=== PATIENT | male | born 1955 | race Caucasian/White ===

== ENCOUNTER → 2020-04-13 09:00 | Outpatient (BNVA) | payer OTHER, SELFPAY | PROVIDERS: Visit Provider Family Medicine | DX: C61 Malignant neoplasm of prostate (principal); E78.2 Mixed hyperlipidemia; I10 Essential (primary) hypertension; M77.9 Enthesopathy, unspecified | CPT/HCPCS: 84153 ==

== ENCOUNTER → 2020-05-19 10:47 | Outpatient (BNVA) | payer OTHER, SELFPAY | PROVIDERS: PCP Family Medicine; Visit Provider Urology | DX: C61 Malignant neoplasm of prostate (principal); N99.112 Postprocedural membranous urethral stricture, male | CPT/HCPCS: 81001 ==

== ENCOUNTER → 2020-06-09 12:10 | Outpatient (BNVA) | payer OTHER, SELFPAY | PROVIDERS: PCP Family Medicine; Visit Provider Urology | DX: N99.112 Postprocedural membranous urethral stricture, male (principal) | CPT/HCPCS: 81003; 87635 ==

== ENCOUNTER 2020-06-12 12:54 | Day surgery (SDC) | payer OTHER, SELFPAY ==
[2020-06-09 16:32] VITALS: BMI 26.4
[2020-06-12] VITALS (7 sets, daily range): BP systolic 112–151; BP diastolic 68–93; PULSE 51–66; RESP 15–23; TEMP 36.1–36.6; O2SAT 96–100
--- NOTE | 2020-06-12 13:21 | ANES.PREANE2 ---
Pre-Anesthetic Assessment Pre-Anesthetic Assessment: Height/Weight: Height 1.83 m Weight 88.451 kg Temp Pulse Resp BP Pulse Ox 97.1 F L 51 L 16 138/85 100 06/12/20 13:19 06/12/20 13:19 06/12/20 13:19 06/12/20 13:19 06/12/20 13:19 Preop Diagnosis: Urethrovesical anastomotic stricture Proposed Procedure: Operation Date: 06/12/20 14:35 Proposed Procedures p Cystoscopy 56155 N35.919(Not Applicable) - Robbin Nolasco MD s Urethral Dilation(Not Applicable) - Robbin Nolasco MD Was Beta Alyssa taken within 24 hours: Yes Last intake: Intake Last Liquid Date 06/12/20 Last Liquid Time 09:00 Last Solid Date 06/11/20 Last Solid Time 22:30 Social: Social History: No alcohol and No tobacco Packs per day: Quit smoking in 2002 Exam: Pre-Anes Outpt Exam: alert, oriented x 3, clear to auscultation bilaterally and regular rate & rhythm Airway: Submandibular: WNL Cervical ROM: WNL MP: 2 Pulmonary: Pulmonary: None reported CV/HEM: CV/HEM: HTN : Comments: Post Prostatectomy Urethral Stricture Hepatic: Hepatic: None reported GI: GI: None reported Metabolic: Metabolic: Hyperlipidemia Musc/skel: Musc/skel: None reported Neuropsych: Neuropsych: None reported Anesthetic Plan: ASA status: 2 Anesthesia: General PFSH Anesthesia PFSH: Medical History History of external beam radiation therapy 2018 for residual prostate cancer following radical prostatectomy in 2016 did well Hyperlipidemia Hypertension Prostate cancer Surgical History Hx of left inguinal hernia repair Hx of prostatectomy Family History Mother CAD (coronary artery disease) Social History Smoking and tobacco status: former smoker Quit status (tobacco): has quit using tobacco Year quit tobacco: 2002 Alcohol intake: current Alcohol intake frequency: holidays/special occasions only Adopted: No Caregiver/support person: No Lives independently: No Household members: spouse Marital status: Current occupational status: retired Data Anesthesia Cardiac Studies: No Data to Display
[2020-06-12] MEDS: sodium chloride 0.9% 1,000 ML 30 ML IV (13:24)
--- NOTE | 2020-06-12 14:23 | P.HPUD_ITS ---
Surgery/Procedure H&P Update DATE OF PROCEDURE: June 12, 2020 DATE H&P PERFORMED: 06/09/20 H&P UPDATE INFORMATION: I have reviewed H&P completed within last 30 days, I have examined patient prior to procedure, No changes to prior documentation and H&P is in [facility] EMR on date indicated PREOP DIAGNOSIS: Urethrovesical anastomotic stricture PLANNED PROCEDURE: Operation Date: 06/12/20 14:35 Proposed Procedures p Cystoscopy 92416 N35.919(Not Applicable) - Robbin Nolasco MD s Urethral Dilation(Not Applicable) - Robbin Nolasco MD
[2020-06-12] MEDS: levofloxacin-dextrose 5 % 500 MG/100 ML PREMIX 100 MG IV (14:33)
[2020-06-12] MEDS: lidocaine 2% Urojet 20 mL TOPICAL (14:52)
[2020-06-12] MEDS: iohexol 300 mg/mL 50 mL Btl (OR ONLY) XX (14:53)
--- NOTE | 2020-06-12 15:10 | SUR.PHASEI ---
1502 PATIENT TO PACU FROM OR. ORAL AIRWAY IN PLACE. SPO2 98% ON SIMPLE MASK AT 8L. PEREZ CATH IN PLACE, SECURED TO LEFT LEG.
--- NOTE | 2020-06-12 15:15 | SUR.PHASEI ---
1515 ORAL AIRWAY REMOVED AT THIS TIME. SPO2 99% ON SIMPLE MASK.
--- NOTE | 2020-06-12 15:18 | P.OP_ITS ---
Operative Report Date of procedure: June 12, 2020 Pre-op Diagnosis: Urethrovesical anastomotic stricture Post-op diagnosis: same Procedure Done: Cystoscopy, dilation of bladder neck Pathology: none sent Surgeon: Gaurav Anesthesia: General Estimated blood loss: Minimal Complications: None Findings: Narrow bladder neck requiring guidewire passage and dilation over the guidewire. Condition: stable Disposition: PACU Brief History: Mr. Nino is a delightful 65-year-old white male status post radical prostatectomy with bladder neck contracture. He is undergone visual internal ureterotomy and dilation in the past. Was discovered to have a recurrent symptomatic anastomotic stricture and is admitted for dilation with planned further passive dilation with indwelling Singh catheter followed by SCIC initiation for stricture patency maintenance. Procedure: After routine preoperative evaluation examination and obtaining of informed consent he was taken to the operating suite on 06/12/2020 where general anesthesia was administered without difficulty after appropriate timeout was performed, SCDs confirmed to be functioning, preoperative antibiotics administered, beta-arvind protocol confirmed. Prepped and draped in the usual sterile fashion in dorsal lithotomy position paying careful attention to avoiding pressure points. 21 Liberian cystoscope with 30 degree lens was introduced into the urethral meatus and advanced to the bladder neck under videoscopy. The pinpoint opening was identified at the 6 o'clock position as identified previously in clinic. A flexible tip guidewire was then passed through the opening into the bladder as confirmed via fluoroscopy. An open-ended catheter was then passed over the guidewire and the guidewire removed and contrast was injected into the bladder to confirm positioning and to facilitate passage of dilators. The wire was then replaced back through the open-ended catheter and the catheter was removed. Dilation of anastomotic stricture was then conducted with Amplatz renal dilators beginning at 8 Liberian and extending up to 18 Liberian with the final 14, 16 and 18 Liberian dilators over a snake. Each passage was observed under fluoroscopic real-time imaging. The cystoscope was then passed back into the urethra and into the bladder through the dilated area. No gross pathology was identified in the bladder. The cystoscope was then removed and a 16 Liberian teller tip catheter was advanced over the guidewire into the bladder. The balloon was inflated and confirmed to be functioning prior to removal of the wire. The bladder was drained and the procedure completed. He tolerated the procedure well without complications and was awakened in the operating room and returned to the care of room in stable condition. PLANS: 1. Discharge from outpatient surgery today with follow-up in my office early next week with voiding trial and SCIC instruction.
--- NOTE | 2020-06-12 15:25 | SUR.PHASEI ---
1522 PATIENT TO OPS. DENIES PAIN. PEREZ CATH IN PLACE. TOLERATING ICE CHIPS.
--- NOTE | 2020-06-12 16:16 | ANE.PACU2 ---
Inpatient post-anesthesia follow up: Airway intact: Yes Vital signs: Temperature 97.8 F Pulse Rate 54 Respiratory Rate 18 Blood Pressure 151/88 Pulse Oximetry 99 Oxygen Delivery Me thod Room Air Oxygen Flow Rate 8 Fraction of Inspir ed Oxygen Hydration adequate: Yes Nausea and vomiting: No Pain level: 3 Mental status: Baseline
== END 2020-06-12 16:00 | disposition home or self-care (01) ==
PROVIDERS: PCP Family Medicine; Visit Provider Urology
PROC: 0TJB8ZZ Inspection of Bladder, Via Natural or Artificial Opening Endoscopic (ICD-10-PCS; CPT 52000; principal; 2020-06-12 14:15)
PROC: (CPT 52281; 2020-06-12 14:15)
DX: N35.919 Unspecified urethral stricture, male, unspecified site (principal); Z87.891 Personal history of nicotine dependence; I10 Essential (primary) hypertension; E78.5 Hyperlipidemia, unspecified; Z85.46 Personal history of malignant neoplasm of prostate
CPT/HCPCS: 52281; 12345; J1100; J1956; J2405; J2704; J2710; J3010; J3490; J7030

== ENCOUNTER 2020-06-20 10:28 | Outpatient (CLI) | payer OTHER, SELFPAY ==
--- NOTE | 2020-06-22 15:35 | ONC CON_ITS ---
Dr. Reed New Patient Note Patient: Josse Nino Unit #: [id number]: 1955 Dicatated By: Jose Reed M.D.Date of Visit: Jun 20, 2020 Onc MED New Patient/Consult Referring Physician: Dr. Robbin Nolasco M.D. History of Present Illness: Mr. Garcia Nino, is a 65-year-old gentleman with history of prostate cancer, diagnosed in September 2015, in October 2015, he underwent retropubic prostatectomy in [place] and final pathology report showed perineural invasion, focal extracapsular extension but no evidence of seminal vesicle invasion and with clear margin. [place] score 3+7 with 40% involvement, at that time no further treatment was offered and patient was observed and during follow-up his PSA slowly but gradually start increasing and reached to peak at 0.3 in 2017 at that time patient was treated with adjuvant radiation therapy subsequently during follow-up his PSA decreased to 0.03 but during follow-up in May 2020 his PSA started going up to 0.087 and there was no palpable disease on LV as per urology note. Patient said he had discussion with Dr. Nolasco regarding treatment options due to very slow progression of PSA treatment options were discussed including observation and or systemic therapy given patient had a fairly definite therapy and salvage radiation therapy, patient is here to discuss role of systemic therapy. Patient denies any hematuria, denies any pelvic pain, denies any lower back pain, denies any bony pains, denies any fever chills nausea or vomiting denies any hemoptysis or hematemesis denies any melena or hematochezia, denies any weight loss, appetite is good and maintaining good quality of life. postop period Complicated with recurrent urethral stricture requiring frequent dilation. And intermittent catheterization Past Medical History: Mr. Nino's medical history consists of hyperlipidemia and hypertension. Past Surgical History: Mr. Nino's surgical/procedural history consists of hernia repair and prostatectomy. Medications: Aspirin 1 Tablet (of 81 mg) Tablet, enteric coated Oral daily, Atenolol 1 Tablet (of 100 mg) Oral daily, Atorvastatin Calcium 1 Tablet (of 40 mg) Oral daily, Lisinopril-hydroCHLOROthiazide 0.5 Tablet (of 20-25 mg) Oral daily Allergies: No Known Allergies. Social History: Mr. Nino is . Mr. Nino no longer smokes. He drinks occasionally. Family History: Mr. Nino's mother at age 88: coronary artery disease. Mr. Nino's father at age 48: war. Mr. Nino has 1 brother who is alive. Review Of Symptoms: Constitutional - Appetite is good and weight is stable. No fever, night sweats, or hot flashes. Energy level is good, ENMT - No sinus congestion/drainage. No mouth sores. No sore throat or difficulty swallowing, Hematologic/Lymphatic - No abnormal bruising or bleeding, Respiratory - No shortness of breath. No cough. No pleuritic pain or hemoptysis, Cardiovascular - No angina pain. No palpitations, Gastrointestinal - No nausea or vomiting. No heartburn or acid reflux. No diarrhea or constipation. No blood in the stool or black stools, Genitourinary (M) - No dysuria or hematuria. No urinary frequency. No urgency or incontinence, Musculoskeletal - No joint or bone pain, Neurologic - No headache or dizziness. No numbness or tingling. No other focal neurologic symptoms, Psychiatric - No anxiety or depression. No insomnia. Vital Signs: Most recent vitals are not available for this patient. Performance Status: 0 - Fully active, able to carry on all predisease activities without restrictions. (ECOG) Physical Examination: ENMT - No mouth sores, no thrush, no jaundice, Respiratory - Lungs are clear to auscultation, Cardiovascular - Regular rate and rhythm of heart, Abdomen - , Soft, bowel sounds present, Extremities - No visible edema. Lab/Imaging: Most recent lab results are not available for this patient. Impression: Biochemical recurrence with rising PSA, history of prostate cancer diagnosed in September 2015 status post retropubic prostatectomy in October 2015, status post salvage radiation therapy in 2018 for rising post prostatectomy PSA now with slowly but gradually rising PSA with a prolonged doubling time, PSA in April 2020 0.87 and in January 2020 was 0.85 Urethral stricture status post urethral dilation and intermittent catheterization Plan: Discussed with patient regarding his disease status and treatment options and follow-up plan, his follow-up PSA levels with Dr. Nolasco, showed slow progression e.g. prolonged doubling time and patient has no sign symptoms suggestive of metastatic disease. So ,at this point, one option would be continue to observe with a follow-up PSA levels and if it continues to go up then consider choline CT PET scan to identify if patient has focal recurrence, which can be managed with SBRT if possible or surgical resection or systemic therapy if metastatic disease. Other option would be refer him to urology oncology clinic at [place] for evaluation for clinical trial in biochemical recurrence after definitive prostatectomy and salvage radiation therapy. Patient opted for evaluation at [place] urology clinic, will refer him there and then he will return to clinic 1 week after his visit to [place] for further discussion. Signed By: Jose Reed M.D. <<Signature on File>>
== END 2020-06-20 10:29 | disposition home or self-care (01) ==
LOC: ONCMED 10:30
PROVIDERS: PCP Family Medicine; Visit Provider Internal Medicine Hematology & Oncology
DX: C61 Malignant neoplasm of prostate (principal); R97.21 Rising PSA following treatment for malignant neoplasm of prostate; Z90.79 Acquired absence of other genital organ(s); Z87.891 Personal history of nicotine dependence
CPT/HCPCS: 99203

== ENCOUNTER → 2020-09-25 11:15 | Outpatient (BNVA) | payer OTHER, SELFPAY | PROVIDERS: PCP Family Medicine; Visit Provider Urology | DX: C61 Malignant neoplasm of prostate (principal) | CPT/HCPCS: 84153 ==

== ENCOUNTER 2020-09-29 11:09 | Outpatient (CLI) | payer OTHER, SELFPAY ==
[2020-09-29 11:47] LABS: Basophils % 0.6 %; Eosinophils # 0.1 10^3/uL (0.0-0.8); Eosinophils % 1.4 %; Hemoglobin 13.7 g/dL (11.7-16.6); Lymphocytes # 1.4 10^3/uL (0.8-4.8); Mean Corpuscular HGB Conc 32.6 g/dL (30.0-36.0); Mean Corpuscular Hemoglobin 29.6 pg (28.0-34.0); Mean Corpuscular Volume 90.7 fL (80-94); Mean Platelet Volume 10.8 fL (7.4-10.4); Monocytes # 0.5 10^3/uL (0.2-0.9); Monocytes % 9.8 %; Neutrophils # 2.89 10^3/uL (1.8-7.7); Nucleated Red Blood Cells % 0 %; Platelet Count 213 10^3/cmm (130-400); Red Blood Count 4.63 10^6/uL (4.1-5.3); White Blood Count 4.9 10^3/uL (4.0-10.0)
[2020-09-29 12:11] LABS: Prostate Specific Antigen 0.112 ng/mL (0-4)
[2020-09-29 12:22] LABS: Alanine Aminotransferase 23 U/L (0-41); Albumin Level 4.1 g/dL (3.5-5.2); Alkaline Phosphatase 72 IU/L (40-130); Anion Gap 9.1 (5-19); Aspartate Amino Transferase 17 U/L (0-40); Blood Urea Nitrogen 13 mg/dL (8-23); Calcium 9.2 mg/dL (8.5-10.5); Carbon Dioxide 29 mmol/L (22-29); Chloride 106 mmol/L (98-107); Globulin 2.8 g/dL (1.3-4.6); Glomerular Filtration Rate 67.6 mL/min (90-130); Glucose 88 mg/dL (65-115); Osmolality Calculated 290 mOsm/kg (285-295); Potassium 4.1 mmol/L (3.5-5.1); Sodium 140 mmol/L (136-145); Total Bilirubin 0.7 mg/dL (0.15-1.2); Total Protein 6.9 g/dL (6.6-8.7)
== END 2020-09-29 11:10 | disposition home or self-care (01) ==
LOC: ONCMED 11:11
PROVIDERS: PCP Family Medicine; Visit Provider Internal Medicine Hematology & Oncology
DX: C61 Malignant neoplasm of prostate (principal); N99.112 Postprocedural membranous urethral stricture, male
CPT/HCPCS: 80053; 81003; 84153; 85025

== ENCOUNTER 2020-10-03 15:51 | Outpatient (CLI) | payer OTHER, SELFPAY ==
--- NOTE | 2020-10-03 17:17 | ONC FU_ITS ---
Dr. Reed follow up note Patient: Josse Nino Unit #: [id number]: 1955 Dicatated By: Jose Reed M.D.Date of Visit:Oct 03, 2020 Onc Med Follow-up/Prog Note History of Present Illness: Mr. Garcia Nino, is a 65-year-old gentleman with history of prostate cancer, diagnosed in September 2015, in October 2015, he underwent retropubic prostatectomy in [place] and final pathology report showed perineural invasion, focal extracapsular extension but no evidence of seminal vesicle invasion and with clear margin. Epifanio score 3+7 with 40% involvement, at that time no further treatment was offered and patient was observed and during follow-up his PSA slowly but gradually start increasing and reached to peak at 0.3 in 2017 at that time patient was treated with adjuvant radiation therapy subsequently during follow-up his PSA decreased to 0.03 but during follow-up in May 2020 his PSA started going up to 0.087 and there was no palpable disease on LV as per urology note. Patient said he had discussion with Dr. Nolasco regarding treatment options due to very slow progression of PSA treatment options were discussed including observation and or systemic therapy given patient had a fairly definite therapy and salvage radiation therapy, patient is here to discuss role of systemic therapy. Patient denies any hematuria, denies any pelvic pain, denies any lower back pain, denies any bony pains, denies any fever chills nausea or vomiting denies any hemoptysis or hematemesis denies any melena or hematochezia, denies any weight loss, appetite is good and maintaining good quality of life. postop period Complicated with recurrent urethral stricture requiring frequent dilation. And intermittent catheterization Came for follow-up, complaining of left pubic area pain, denies any trauma to that area but he has history of hernia repair in the past. Denies any hematuria or dysuria denies any melena or hematochezia denies any nausea or vomiting denies any fever chills. Patient was referred to [place] for evaluation for clinical trial for biochemical recurrence but his insurance did not provide coverage Medications: Aspirin 1 Tablet (of 81 mg) Tablet, enteric coated Oral daily, Atenolol 1 Tablet (of 100 mg) Oral daily, Atorvastatin Calcium 1 Tablet (of 40 mg) Oral daily, Lisinopril-hydroCHLOROthiazide 0.5 Tablet (of 20-25 mg) Oral daily Allergies: No Known Allergies. Review of Systems: Review of Systems is not available for this patient. Vital Signs: Performed on Oct 03, 2020 16:36 Height - 72 in Weight - 214 lbs (HIGH) BSA - 2.19 sq.m BMI - 29.02 Temperature - 98.2 F (LOW) Pulse - 67 /min Respiration - 16 /min BP - 158/92 mm(hg) (HIGH) O2 Sat - 97 % Pain - 0 Fatigue - 0 Performance Status: 0 - Fully active, able to carry on all predisease activities without restrictions. (ECOG) Physical Examination: ENMT - No mouth sores, no thrush, no jaundice, Respiratory - Lungs are clear to auscultation, Cardiovascular - Regular rate and rhythm of heart, Abdomen - Soft, bowel sounds present, Extremities - No visible edema. Lab/Imaging: Most recent lab results are not available for this patient. Impression: Biochemical recurrence with rising PSA, history of prostate cancer diagnosed in September 2015 status post retropubic prostatectomy in October 2015, status post salvage radiation therapy in 2017 for rising post prostatectomy PSA now with slowly but gradually rising PSA with a prolonged doubling time, PSA in April 2020 0.87 and in January 2020 was 0.85 Urethral stricture status post urethral dilation and intermittent catheterization Plan: Guarding his labs white blood count 4.9 hemoglobin 13.7 hematocrit 42 platelets 213,000 CMP within normal limits PSA 0.112 compared to 0.87 on April 2020 Clinically, patient is doing well with no new signs symptoms suggestive of recurrence of disease but concern is left pubic pain and no history of trauma, with PSA going up slowly and gradually so we will consider bone scan to rule out any bone mets. Patient will return to clinic after bone scan for further discussion. In the meantime we will continue to monitor his PSA every 3 to 4 months and if it continues to go up, we may consider choline CT PET. Signed By: Jose Reed M.D. <<Signature on File>>
== END 2020-10-03 15:52 | disposition home or self-care (01) ==
PROVIDERS: PCP Family Medicine; Visit Provider Internal Medicine Hematology & Oncology
DX: C61 Malignant neoplasm of prostate (principal); R10.2 Pelvic and perineal pain; R97.21 Rising PSA following treatment for malignant neoplasm of prostate; N35.919 Unspecified urethral stricture, male, unspecified site; Z90.79 Acquired absence of other genital organ(s)
CPT/HCPCS: 99214

== ENCOUNTER 2020-10-27 09:28 | Outpatient (CLI) | payer OTHER, SELFPAY ==
--- NOTE | 2020-10-27 09:36 | NM_ITS ---
WS: [id number] NUCLEAR MEDICINE WHOLE BODY BONE SCAN HISTORY: PROSTATE CANCER/L ANTERIOR PELVIC PAIN COMPARISON: None available. TECHNIQUE: The patient was injected with 25.4 mCi of Technetium 99m HDP and serial whole-body scintig kalin have been performed with anterior and posterior images. 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 There is very minimal increased uptake w ithin the LEFT L5 pedicle. This is probably due to arthritis. No rib lesions are identified. No osteo penic defects. Patient is describing pain over the LEFT anterior pelvis which is negative. NM/NM bone scan whole body* [id number] IMPRESSION: 1. No definite evidence for metastatic disease to the bony skeleton. 2. Minimal increased uptake in the LEFT L5 pedicle is probably facet joint art hritis. If patient continues to complain of pain this area can be further evalu ated by MRI or CT. Radiographically may not be evident due to its small size.
== END 2020-10-27 09:29 | disposition home or self-care (01) ==
PROVIDERS: PCP Family Medicine; Visit Provider Internal Medicine Hematology & Oncology
DX: C61 Malignant neoplasm of prostate (principal)
CPT/HCPCS: 78306; A9561

== ENCOUNTER 2020-11-03 08:51 | Outpatient (CLI) | payer OTHER, SELFPAY ==
[2020-11-03 09:55] LABS: Basophils % 0.9 %; Eosinophils # 0.1 10^3/uL (0.0-0.8); Eosinophils % 1.8 %; Hematocrit 42.5 % (42.0-52.0); Hemoglobin 13.8 g/dL (11.7-16.6); Lymphocytes # 1.4 10^3/uL (0.8-4.8); Mean Corpuscular HGB Conc 32.5 g/dL (30.0-36.0); Mean Corpuscular Hemoglobin 29.7 pg (28.0-34.0); Mean Corpuscular Volume 91.4 fL (80-94); Mean Platelet Volume 10.8 fL (7.4-10.4); Monocytes # 0.5 10^3/uL (0.2-0.9); Monocytes % 10.3 %; Neutrophils % 54.8 %; Nucleated Red Blood Cells % 0 %; Platelet Count 233 10^3/cmm (130-400); Red Blood Count 4.65 10^6/uL (4.1-5.3); Red Cell Distribution Width 14.6 % (12.1-15.1); White Blood Count 4.4 10^3/uL (4.0-10.0)
[2020-11-03 10:18] LABS: Prostate Specific Antigen 0.159 ng/mL (0-4)
[2020-11-03 10:28] LABS: Alanine Aminotransferase 18 U/L (0-41); Albumin Level 4.2 g/dL (3.5-5.2); Alkaline Phosphatase 67 IU/L (40-130); Anion Gap 14.3 (5-19); Aspartate Amino Transferase 17 U/L (0-40); Blood Urea Nitrogen 12 mg/dL (8-23); Calcium 9.3 mg/dL (8.5-10.5); Carbon Dioxide 27 mmol/L (22-29); Chloride 102 mmol/L (98-107); Globulin 2.7 g/dL (1.3-4.6); Glomerular Filtration Rate 85.2 mL/min (90-130); Glucose 109 mg/dL (65-115); Osmolality Calculated 288 mOsm/kg (285-295); Potassium 4.3 mmol/L (3.5-5.1); Sodium 139 mmol/L (136-145); Total Bilirubin 0.6 mg/dL (0.15-1.2); Total Protein 6.9 g/dL (6.6-8.7)
--- NOTE | 2020-11-03 11:50 | ONC FU_ITS ---
Dr. Reed follow up note Patient: Josse Nino Unit #: [id number]: 1955 Dicatated By: Jose Reed M.D.Date of Visit:Nov 03, 2020 Onc Med Follow-up/Prog Note History of Present Illness: Mr. Garcia Nino, is a 65-year-old gentleman with history of prostate cancer, diagnosed in September 2015, in October 2015, he underwent retropubic prostatectomy in [place] and final pathology report showed perineural invasion, focal extracapsular extension but no evidence of seminal vesicle invasion and with clear margin. Epifanio score 3+7 with 40% involvement, at that time no further treatment was offered and patient was observed and during follow-up his PSA slowly but gradually start increasing and reached to peak at 0.3 in 2017 at that time patient was treated with adjuvant radiation therapy subsequently during follow-up his PSA decreased to 0.03 but during follow-up in May 2020 his PSA started going up to 0.087 and there was no palpable disease on LV as per urology note. Patient said he had discussion with Dr. Nolasco regarding treatment options due to very slow progression of PSA treatment options were discussed including observation and or systemic therapy given patient had a fairly definite therapy and salvage radiation therapy, patient is here to discuss role of systemic therapy. Patient denies any hematuria, denies any pelvic pain, denies any lower back pain, denies any bony pains, denies any fever chills nausea or vomiting denies any hemoptysis or hematemesis denies any melena or hematochezia, denies any weight loss, appetite is good and maintaining good quality of life. postop period Complicated with recurrent urethral stricture requiring frequent dilation. And intermittent catheterization Follow-up bone scan done on October 27, 2020 shows no definitive evidence of metastatic disease to the bony skeleton. Minimal increased uptake in left 5 pedicle is probably facet joint arthritis Came for follow-up, denies any specific complaint except episode of pain in the lower back for couple of weeks then spontaneously resolved on its own. Denies any history of hematuria denies any history of passing stone. No new bony pains, no fever chills, no nausea or vomiting, no weight loss, appetite is good. Medications: Aspirin 1 Tablet (of 81 mg) Tablet, enteric coated Oral daily, Atenolol 1 Tablet (of 100 mg) Oral daily, Atorvastatin Calcium 1 Tablet (of 40 mg) Oral daily, Lisinopril-hydroCHLOROthiazide 0.5 Tablet (of 20-25 mg) Oral daily Allergies: No Known Allergies. Review of Systems: Review of Systems is not available for this patient. Vital Signs: Performed on Nov 03, 2020 10:41 Height - 72.00 in Weight - 214.6 lbs (HIGH) BSA - 2.20 sq.m BMI - 29.11 Temperature - 97.8 F (LOW) Pulse - 57 /min (LOW) Respiration - 18 /min BP - 150/92 mm(hg) (HIGH) O2 Sat - 97 % Pain - 0 Performance Status: 0 - Fully active, able to carry on all predisease activities without restrictions. (ECOG) Physical Examination: ENMT - Sores, no thrush, no jaundice, Respiratory - Lungs are clear to auscultation, Cardiovascular - Regular rate and rhythm of heart, Abdomen - Soft, Bowel sounds present, Extremities - No visible edema. Lab/Imaging: Most recent lab results are not available for this patient. Impression: Biochemical recurrence with rising PSA, history of prostate cancer diagnosed in September 2015 status post retropubic prostatectomy in October 2015, status post salvage radiation therapy in 2018 for rising post prostatectomy PSA now with slowly but gradually rising PSA with a prolonged doubling time, PSA in April 2020 0.087 and in January 2020 was 0.085 Urethral stricture status post urethral dilation and intermittent catheterization Plan: Discussed with patient regarding his labs white blood count 4.5 hemoglobin 13.8 hematocrit 42.5 platelets 233,000 PSA 0.159 compared to 0.112 compared to 0.087 in May 2020 Bone scan shows no evidence of metastatic disease but minimal increased uptake in left L5 pedicle probably due to arthritis Clinically, patient doing well with no new signs symptom suggestive of disease progression but his PSA is slowly gradually progressing and now nearly doubled since May 2020. Patient was referred to [place] for evaluation for clinical trial for biochemical recurrence but due to insurance coverage, he did not get appointment now clinical trial availability at [facility] is being explored. In the meantime ,we will continue to monitor his PSA and if it continues to go up may consider prostate cancer specific scans like choline CT PET scan. Return to clinic in 3 months with a PSA, patient would like to have PSA done at [facility] a day before his return to clinic, prescription was given to the patient and also sent to the [facility] Signed By: Jose Reed M.D. <<Signature on File>>
== END 2020-11-03 08:52 | disposition home or self-care (01) ==
LOC: ONCMED 08:52
PROVIDERS: PCP Family Medicine; Visit Provider Internal Medicine Hematology & Oncology
DX: C61 Malignant neoplasm of prostate (principal); R97.21 Rising PSA following treatment for malignant neoplasm of prostate; Z92.3 Personal history of irradiation; Z79.82 Long term (current) use of aspirin
CPT/HCPCS: 36415; 80053; 84153; 85025; 99214

== ENCOUNTER → 2021-02-07 08:51 | Outpatient (BNVA) | payer OTHER, SELFPAY | PROVIDERS: PCP Family Medicine; Visit Provider Internal Medicine Hematology & Oncology | DX: C61 Malignant neoplasm of prostate (principal) | CPT/HCPCS: 84153 ==

== ENCOUNTER → 2021-03-29 15:45 | Outpatient (BNVA) | payer OTHER, SELFPAY | PROVIDERS: PCP Family Medicine; Visit Provider Urology | DX: N99.112 Postprocedural membranous urethral stricture, male (principal) | CPT/HCPCS: 81003 ==

== ENCOUNTER → 2022-11-11 16:42 | Outpatient (BNVA) | payer MEDICARE, SELFPAY | PROVIDERS: PCP Family Medicine; Visit Provider Urology | DX: Z85.46 Personal history of malignant neoplasm of prostate (principal) | CPT/HCPCS: 84153 ==

== ENCOUNTER → 2024-04-15 12:00 | Outpatient (BNVA) | payer MEDICARE, SELFPAY | PROVIDERS: PCP Family Medicine; Visit Provider Family Medicine | DX: C61 Malignant neoplasm of prostate (principal); E78.2 Mixed hyperlipidemia; I10 Essential (primary) hypertension | CPT/HCPCS: 80053; 80061 ==

== ENCOUNTER → 2024-06-28 08:40 | Outpatient (BNVA) | payer MEDICARE, SELFPAY | PROVIDERS: PCP Family Medicine; Referring Provider Urology; Visit Provider Family Medicine | DX: C61 Malignant neoplasm of prostate (principal) | CPT/HCPCS: 84153; 84403 ==

== ENCOUNTER → 2024-08-05 13:28 | Outpatient (BNVA) | payer MEDICARE, SELFPAY | PROVIDERS: PCP Family Medicine; Referring Provider Family Medicine; Visit Provider Student in an Organized Health Care Education/Training Program | DX: Z12.11 Encounter for screening for malignant neoplasm of colon (principal); R03.0 Elevated blood-pressure reading, without diagnosis of hypertension | CPT/HCPCS: 99204 ==

== ENCOUNTER 2024-08-30 10:02 | Day surgery (SDC) | payer MEDICARE, SELFPAY ==
[2024-08-30 10:15] VITALS: BMI 25.7
[2024-08-30 10:17] VITALS: BP 120/80; PULSE 64; RESP 18; TEMP 36.4; O2SAT 100
[2024-08-30] MEDS: sodium chloride 0.9% 500 ML 15 ML IV (10:24)
--- NOTE | 2024-08-30 11:27 | ANES.PREANE2 ---
Pre-Anesthetic Assessment Height/Weight: Height 1.83 m Weight 86.183 kg Temp Pulse Resp BP Pulse Ox O2 Del Method 97.6 F 64 18 120/80 100 Room Air 08/30/24 10:17 08/30/24 10:17 08/30/24 10:17 08/30/24 10:17 08/30/24 10:17 08/30/24 10:17 Preop Diagnosis: screening Operation Date: 08/30/24 11:00 Proposed Procedures p Colonoscopy 62824, G0121, Z12.11(Not Applicable) - Paulie Jacobo MD Was Beta Alyssa taken within 24 hours: N/A Was Clonidine taken within 24 hours: N/A Last intake: Intake Last Liquid Date 08/29/24 Last Liquid Time 20:00 Last Solid Date 08/28/24 Last Solid Time 20:00 Social No alcohol and No tobacco Exam alert, oriented x 3 and clear to auscultation bilaterally Airway Submandibular: within normal limits Cervical ROM: within normal limits Mallampati: Class II Dentition: full History/ROS No significant history except as noted Pulmonary None reported CV/HEM Hypertension denies CP None reported Hepatic None reported GI None reported Metabolic None reported Musc/skel None reported Neuropsych None reported Anesthetic Plan ASA status: 2 Anesthesia: MAC Risk of > 500 ml blood loss (7ml/kg in children): No Medications/Allergies Home Medications Medication Instructions Recorded Confirmed Last Taken Type atenolol 100 mg tablet 100 mg PO DAILY 08/26/24 08/26/24 08/29/24 History aspirin 325 mg tablet 325 mg PO DAILY #90 tabs 08/27/24 08/30/24 08/24/24 Rx atorvastatin 40 mg tablet 40 mg PO DAILY #90 tabs 08/27/24 08/30/24 08/29/24 Rx lisinopril 20 0.5 tab PO DAILY #90 tabs 08/27/24 08/30/24 08/29/24 Rx mg-hydrochlorothiazide 25 mg tablet Allergies Allergy/AdvReac Type Severity Reaction Status Date / Time No Known Allergies Allergy Verified 08/30/24 10:21 Current Medications Generic Name Dose Route Start Last Admin Trade Name Freq PRN Reason Stop Dose Admin Sodium Chloride 500 mls @ 15 mls/hr 08/30/24 10:10 08/30/24 10:24 Sodium Chloride 0.9% IV 08/31/24 10:09 15 mls/hr .Q24H PRN Administration COLONOSCOPY FLUIDS PFSH Anesthesia Medical History Left groin pain History of external beam radiation therapy 2018 for residual prostate cancer following radical prostatectomy in 2016 did well Hypertension Prostate cancer Hyperlipidemia Surgical History (Updated 08/05/24 @ 13:[address]) History of dilation of urethra 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
--- NOTE | 2024-08-30 11:28 | W.PM.OPSUD ---
Surgery/Procedure H&P Update DATE OF PROCEDURE: August 30, 2024 DATE H&P PERFORMED: 08/05/24 H&P UPDATE INFORMATION: I have reviewed H&P completed within last 30 days, I have examined patient prior to procedure and No changes to prior documentation PLANNED PROCEDURE: Operation Date: 08/30/24 11:00 Proposed Procedures p Colonoscopy 41867, G0121, Z12.11(Not Applicable) - Paulie Jacobo MD
[2024-08-30 12:01] VITALS: BP 83/54; PULSE 63; RESP 18; TEMP 36.2; O2SAT 98
[2024-08-30 12:11] VITALS: BP 113/67; PULSE 56; RESP 16; O2SAT 98
--- NOTE | 2024-08-30 15:37 | ANE.PACU2 ---
Inpatient post-anesthesia follow up: Airway intact: Yes Vital signs: Temperature 97.1 F Pulse Rate 56 Respiratory Rate 16 Blood Pressure 113/67 Pulse Oximetry 98 Oxygen Delivery Me thod Room Air Oxygen Flow Rate Fraction of Inspir ed Oxygen Hydration adequate: Yes Nausea and vomiting: No Pain level: 1 Mental status: Baseline
== END 2024-08-30 12:35 | disposition home or self-care (01) ==
PROVIDERS: PCP Family Medicine; Visit Provider Student in an Organized Health Care Education/Training Program
PROC: 0DJD8ZZ Inspection of Lower Intestinal Tract, Via Natural or Artificial Opening Endoscopic (ICD-10-PCS; CPT 45378; principal; 2024-08-30 11:00)
DX: Z12.11 Encounter for screening for malignant neoplasm of colon (principal); K63.5 Polyp of colon; E78.5 Hyperlipidemia, unspecified; I10 Essential (primary) hypertension; Z85.46 Personal history of malignant neoplasm of prostate; Z79.899 Other long term (current) drug therapy; Z79.82 Long term (current) use of aspirin; Z87.891 Personal history of nicotine dependence
CPT/HCPCS: 45385; 88305; J2704; J7040

== ENCOUNTER → 2025-01-05 08:33 | Outpatient (BNVA) | payer MEDICARE, SELFPAY | PROVIDERS: PCP Family Medicine; Referring Provider Urology; Visit Provider Family Medicine | DX: C61 Malignant neoplasm of prostate (principal) | CPT/HCPCS: 84153 ==

== ENCOUNTER → 2025-07-05 08:20 | Outpatient (BNVA) | payer MEDICARE, SELFPAY | PROVIDERS: PCP Family Medicine; Visit Provider Nurse Practitioner Family | DX: C61 Malignant neoplasm of prostate (principal) | CPT/HCPCS: 84153 ==

== ENCOUNTER → 2025-07-22 08:30 | Outpatient (BNVA) | payer MEDICARE, SELFPAY | PROVIDERS: PCP Family Medicine; Visit Provider Family Medicine | DX: I10 Essential (primary) hypertension (principal); K76.0 Fatty (change of) liver, not elsewhere classified; C61 Malignant neoplasm of prostate | CPT/HCPCS: 80053 ==